=== PATIENT | female | born 1960 | race Asian ===

== ENCOUNTER 2019-03-19 19:51 | Emergency (ER) | payer OTHER ==
[~2019-03-19] VITALS: Ht 144.8 cm; Wt 38.6 kg
[~2019-03-19 19:51] MED LIST: MULT-18 PO
--- NOTE | 2019-03-19 19:54 | ED.ADGEN ---
Past History Past Medical History: No Pertinent History, Other Past Surgical History: No Surgical History Smoking: Non-smoker Alcohol Use: Occasionally Drug Use: None Adult General Chief Complaint Chief Complaint " She caught it on a self yesterday...".. ".It has become more painful and now really swollen..." ( ) HPI HPI Patient is a 58 year old female who presents with above hx and complaints injury to Lt. 4th finger. Distal finger is discolored and swollen. Patient was unable to remove wedding ring. Patient normally healthy. Patient does not remember last tetanus. Patient wedding ring removed with dike cutters. Patient appeared to have return of circulation to finger. Patient use ice and elevate as needed. Patient take Tylenol and ibuprofen for pain. For marked discomfort may take Vicoprofen. Patient follow-up primary care. Patient return if any concerns. Review of Systems Review of Systems Constitutional: Denies fever or chills [] Eyes: Denies change in visual acuity, redness, or eye pain [] HENT: Denies nasal congestion or sore throat [] Respiratory: Denies cough or shortness of breath [] Cardiovascular: No additional information not addressed in HPI [] GI: Denies abdominal pain, nausea, vomiting, bloody stools or diarrhea [] : Denies dysuria or hematuria [] Musculoskeletal: Denies back pain or joint pain []complains of left fourth finger edema. Unable to remove wedding ring Integument: Denies rash or skin lesions [] Neurologic: Denies headache, focal weakness or sensory changes [] Endocrine: Denies polyuria or polydipsia [] All other systems were reviewed and found to be within normal limits, except as documented in this note. Family History Family History Noncontributory Current Medications Current Medications Current Medications Medications (Trade) Dose Ordered Sig/Mildred Start Time Stop Time Status Last Admin Dose Admin Diphtheria/ Tetanus/Acell Pertussis (Boostrix) 0.5 ml ONCE ONCE 03/19/19 20:30 03/19/19 20:31 DC 03/19/19 20:26 0.5 ML Hydrocodone Bitartrate/ Ibuprofen (Vicoprofen 7.5-200) 1 tab 1X ONCE 03/19/19 20:15 03/19/19 20:16 DC 03/19/19 20:23 1 TAB Allergies Allergies Allergies Coded Allergies Type Severity Reaction Last Updated Verified No Known Drug Allergies 04/17/14 No Physical Exam Physical Exam Constitutional: Well developed, well nourished,in acute distress, non-toxic appearance. [] HENT: Normocephalic, atraumatic, bilateral external ears normal, oropharynx moist, no oral exudates, nose normal. [] Eyes: PERRLA, EOMI, conjunctiva normal, no discharge. [] Neck: Normal range of motion, no tenderness, supple, no stridor. [] Cardiovascular:Heart rate regular rhythm, no murmur [] Lungs & Thorax: Bilateral breath sounds clear to auscultation [] Abdomen: Bowel sounds normal, soft, no tenderness, no masses, no pulsatile masses. [] Skin: Warm, dry, no erythema, no rash. [] Back: No tenderness, no CVA tenderness. [] Extremities: No tenderness, no cyanosis, no clubbing, ROM intact, no edema. [] Except findings as per history of present illness and left fourth finger. Neurologic: Alert and oriented X 3, normal motor function, normal sensory function, no focal deficits noted. [] Psychologic: Affect anxious mood normal. [] Current Patient Data Vital Signs Vital Signs Date Time Temp Pulse Resp B/P (MAP) Pulse Ox O2 Delivery O2 Flow Rate FiO2 03/19/19 19:55 98.4 63 18 100 Room Air EKG EKG [] Radiology/Procedures Radiology/Procedures I interpretation x-ray shows edema. There may be a possible small fracture versus vein line.[] Course & Med Decision Making Course & Med Decision Making Pertinent Labs and Imaging studies reviewed. (See chart for details). Wear eden tape. Elevation. Take Tylenol or Profen pain. Follow-up primary care. Return if any concerns. [] Final Impression Final Impression 1. Left fourth finger injury- unable to remove ring[] Dragon Disclaimer Dragon Disclaimer This electronic medical record was generated, in whole or in part, using a voice recognition dictation system. Discharge Summary Visit Information Final Diagnosis Problems Medical Problems: (1) Finger fracture, left Status: Acute Brief Hospital Course Allergies Allergies Coded Allergies Type Severity Reaction Last Updated Verified No Known Drug Allergies 04/17/14 No Vital Signs Vital Signs Date Time Temp Pulse Resp B/P (MAP) Pulse Ox O2 Delivery O2 Flow Rate FiO2 03/19/19 19:55 98.4 63 18 100 Room Air Brief Hospital Course Ms. Shirley is a 58 old female who presented with Lt 4th finger pain, edema and injury. Unable to remove wedding ring. Discharge Information Condition at Discharge: Improved, Stable Disposition/Orders: D/C to Home Dischare Medications Current Medications Hydrocodone Bitartrate/ Ibuprofen (Vicoprofen 7.5-200) 1 tab 1X ONCE PO Last administered on 03/19/19at 20:23; Admin Dose 1 TAB; Start 03/19/19 at 20:15; Stop 03/19/19 at 20:16; Status DC Diphtheria/ Tetanus/Acell Pertussis (Boostrix) 0.5 ml ONCE ONCE VAX IM Last administered on 03/19/19at 20:26; Admin Dose 0.5 ML; Start 03/19/19 at 20:30; Stop 03/19/19 at 20:31; Status DC Active Scripts Active Hydrocodone-Ibuprofen 7.5-200 (Hydrocodone/Ibuprofen) 1 Each Tablet 1 Tab PO PRN Q6HRS PRN Reported Daily Vitamin (Multivitamin) 1 Each Tablet 1 Each PO DAILY Dragon Disclaimer This chart was dictated in whole or in part using Voice Recognition software in a busy, high-work load, and often noisy Emergency Department environment. It may contain unintended and wholly unrecognized errors or omissions. MEMO BANDA MD March 19, 2019 19:54
[2019-03-19 19:55] VITALS: BP 118/69
[2019-03-19] MEDS: HYDROcodon/IBUPROFEN 7.5/200MG 1 TAB TABLET PO ONE (20:23)
[2019-03-19] MEDS: DIPHTH,PERTUSS(ACELL),TET TOX 0.5 ML DISP.SYRIN. VAX IM ONE (20:26)
[2019-03-19] MEDS ORDERED: HYDR-1179 PO (20:56)
--- NOTE | 2019-03-19 21:08 | RAD ---
EXAM: Left hand, 3 views. HISTORY: Trauma. COMPARISON: None. FINDINGS: 3 views of the left hand are obtained. There is no fracture, dislocation or subluxation. No foreign body is seen. There is soft tissue swelling surrounding the fourth proximal interphalangeal joint. IMPRESSION: 1. No acute osseous finding. 2. Soft tissue swelling surrounding the fourth proximal interphalangeal joint. Electronically signed by: Joann Baugh MD (03/19/2019 9:05 PM) [facility]
== END 2019-03-19 21:05 | disposition home or self-care (01) ==
LOC: ER 19:51
DX: S69.92XA Unspecified injury of left wrist, hand and finger(s), initial encounter (principal); W23.0XXA Caught, crushed, jammed, or pinched between moving objects, initial encounter; Y93.89 Activity, other specified; Y92.89 Other specified places as the place of occurrence of the external cause; Y99.8 Other external cause status
CPT/HCPCS: 73130; 90471; 90715; 99284

== ENCOUNTER → 2021-04-02 | Outpatient (CLI) | payer OTHER ==
[~2021-04-02] MED LIST changes: +HYDR-1179 PO
--- NOTE | 2021-04-05 12:06 | RAD ---
EXAM: Bilateral screening mammogram. HISTORY: 60-year-old female presents for screening mammography. TECHNIQUE: Full-field digital craniocaudal and mediolateral oblique views of both breasts are obtaine d for evaluation. Computer aided detection was applied. COMPARISON: There is no prior study for comparison. This exam serves as a baseline mammogram. BREAST PARENCHYMAL DENSITY: Level C - Heterogeneously dense. FINDINGS: There is no suspicious mass, microcalcification or region of architectural distortion. IMPRESSION: BI-RADS Category 2: Benign finding(s). RECOMMENDATION: Annual mammography is recommended. If your mammogram demonstrates that you have dense breast tissue, which could hide abnormalities, and if you have other risk factors for breast cancer that have been identified, you might benefit from s upplemental screening tests that may be suggested by your ordering physician. Dense breast tissue, i n and of itself, is a relatively common condition. This information is not provided to cause undue c oncern, but rather to raise your awareness and to promote discussion with your physician regarding th e presence of other risk factors, in addition to dense breast tissue. A report of your mammography re sults will be sent to you and your physician. You should contact your physician if you have any ques tions or concerns regarding this report. Mammography is a sensitive method for finding small breast cancers, but it does not detect them all a nd is not a substitute for careful clinical examination. A negative mammogram does not negate a clin ically suspicious finding and should not result in delay in biopsying a clinically suspicious abnorma lity. PQRS compliance statement - Patient information was entered into a reminder system with a target due date for the next mammogram. "Our facility is accredited by the [employer] Mammography Program." Electronically signed by: Joann Baugh MD (04/05/2021 12:03 PM) [id number]
== END ==
LOC: MAMMO 09:07
PROVIDERS: ATTEND Obstetrics & Gynecology
DX: Z12.31 Encounter for screening mammogram for malignant neoplasm of breast (principal); N64.89 Other specified disorders of breast
CPT/HCPCS: 77067